=== PATIENT | female | born 1930 | race Caucasian/White ===

== ENCOUNTER 2017-08-30 19:02 | Inpatient (IN) | payer MEDICARE, BC ==
[~2017-08-30] VITALS: Ht 149.9 cm; Wt 67.1 kg
--- NOTE | ~2017-08-30 | EC ---
PATIENT:RAMIRO VIDAL DATE OF SERVICE: 08/31/17 SEX: F MEDICAL RECORD: [id number] DATE OF : 34 LOCATION:[facility] AGE OF PATIENT: 87 ADMISSION DATE: 08/31/17 REFERRING PHYSICIAN: INTERPRETING PHYSICIAN: CHRISS COLVIN MD ECHOCARDIOGRAM REPORT ECHO CHARGES 4 ECHO COMPLETE Date: 08/31 CLINICAL DIAGNOSIS: CHF/LV FUN ECHOCARDIOGRAPHIC MEASUREMENTS (adult normal given) AC root (d.<3.7cm) 3.2 cm LV Septum d (<1.2 cm> 1.3 cm Valve Excursion 1.9 cm LV Septum (systole) 1.7 cm Left Atria (s.<4.0cm> 3.2 cm LVPW d(<1.2cm) 1.5 cm RV (d.<2.3cm) 3.2 cm LVPW (sytole) 1.8 cm LV diastole(<5.6CM) 4.6 cm MV E-F(>70mm/sec) cm LV systole 3.0 cm LVOT Diameter 1.8 cm MV exc.(>10mm) cm Est.ejection fraction (50-75%) % DOPPLER: LVIT cm/sec A 111 cm/sec E 74.0 cm/sec LA cm/sec RVSP 16 mmHg LVOT 91 cm/sec AOP1/2T m/s Asc. Ao 127 cm/sec RVOT 100 cm/sec RA cm/sec PA 138 cm/sec AV Gradient Peak 6.42 mmHg AV Mean 2.94 mmHg AV Area 2.1 cm MV Gradient Peak 6.99 mmHg MV Mean 3.05 mmHg MV Area cm COMMENTS: Box Toe Cementer: 2 PRATIMA OTRIZ Home Care Assistant: 3 Dr. Saxena TAPE# PACS Pericardial Effusion N DATE OF SERVICE: Adequate 2D, color flow, spectral Doppler, and M-Mode. LVH is present. LV internal dimensions are normal. Wall motion is normal. EF is greater than or equal to 55%. Aortic valve sclerosis without stenosis by Doppler interrogation. Left atrium, normal at 3.2 cm. Mitral valve shows no prolapse. Trace MR. Right-sided chamber is grossly normal. Trace TR. TRANSINT:[id number] Voice Confirmation ID: [id number] DOCUMENT ID: [id number] ECHOCARDIOGRAM REPORT [id number] RAMIRO VIDAL CHRISS COLVIN MD at 1155 CC: [id number] DICTATION DATE: 09/01/1725 FIELD INSPECTOR: 09/01/17 1117 DIS IN 09/02/17 [id number] [place] [address]
--- NOTE | ~2017-08-30 | CN ---
PATIENT NAME:RAMIRO VIDAL MEDICAL RECORD: [id number] : 34 LOCATION:[facility] ADMIT DATE: 08/31/17 ACCOUNT: [id number] CONSULTING PHYSICIAN: CHRISS COLVIN MD REFERRING PHYSICIAN: NATACHA CRAVEN DO DATE OF CONSULTATION: 08/31/2017 Cardiology Consultation HISTORY OF PRESENT ILLNESS: An 87-year-old patient of Dr. Moura with a history of peripheral vascular disease and coronary artery disease, actually was seen in the office with TIA type symptomatology, somewhat of a poor historian. She was found to have a left carotid bruit and scheduled for outpatient carotid Doppler and was admitted with syncope and falls, but also noted to have possible left lower lobe pneumonia. We are asked to see her concerning her cardiovascular status. PAST MEDICAL HISTORY: Includes: 1. History of hypertension. 2. Hyperlipidemia. 3. Hypothyroidism, on replacement. 4. Diabetes mellitus. 5. Coronary artery disease, status post intervention. 6. Peripheral vascular disease. ALLERGIES: TETANUS. MEDICATIONS: Typically include Claritin 10 mg p.o. every day, pravastatin 40 every day, Lexapro 5 every day, Neurontin 100 b.i.d., aspirin 81 every day, Glucotrol 10 b.i.d., Synthroid 75 mcg every day, metformin 500 b.i.d. SOCIAL HISTORY: She is a nonsmoker, nondrinker. She has had difficulty as of late with her ADLs. REVIEW OF SYSTEMS: The patient reports easy bruising but reports no swollen glands. The patient reports no fever, no night sweats, no significant weight gain, no significant weight loss. No significant exercise tolerance. The patient reports no dry eyes, no irritation, no vision change. Patient reports no difficulty hearing and no ear pain. Patient reports no frequent nose bleeds or nose and sinus problems. Patient reports on arm pain on exertion. No shortness of breath while lying down. No history of heart murmur. Patient reports no cough, no wheezing or coughing up blood. Patient reports no abdominal pain, no vomiting. Normal appetite. No diarrhea and not vomiting blood. No nausea and no constipation. Patient reports no incontinence. No difficulty urinating. No hematuria. No increased frequency. Patient reports no muscle aches. No weakness, no arthralgias, no back pain. No swelling of the extremities. Patient reports no abnormal mole, no jaundice, no rashes. Reports no loss of consciousness. No weakness and no numbness. No seizures, dizziness, or headaches. The patient reports no depression, no sleep disturbance, feeling safe in a relationship and no alcohol abuse. Patient reports on fatigue. Reports no runny nose or sinus pressure. No itching, no hives, and no frequent sneezing. PHYSICAL EXAMINATION: GENERAL: Elderly female in no acute distress. CONSULT REPORT [id number] RAMIRO VIDAL VITAL SIGNS: Blood pressure 97/46, pulse 77 and regular. HEENT: Normocephalic, atraumatic. NECK: Bilateral carotid bruits, left greater than right. HEART: Regular, II/ systolic ejection murmur. LUNGS: Good air excursion. ABDOMEN: Soft, nontender. EXTREMITIES: Pulses are preserved at 1+. There is no edema. DIAGNOSTIC DATA: EKG shows normal sinus rhythm, normal ME interval, no acute changes. IMPRESSION: The patient does have abnormal carotid Doppler by preliminary report with totally occluded right external carotid, additionally murmur sounds slightly improved. She is to follow up with Dr. Moura. We will plan for echocardiographic study and CTA of bilateral carotids. TRANSINT:[id number] Voice Confirmation ID: [id number] DOCUMENT ID: [id number] CHRISS COLVIN MD at 1155 CC: [id number] DICTATION DATE: 08/31/17 1143 SCREW MACHINE ADJUSTER AUTOMATIC: 08/31/17 1454 DIS IN 09/02/17 [id number] [place] [address]
[~2017-08-30 19:02] MED LIST: BAYER CHEWABLE81 MG PO; CLARITIN 10 MG10 MG PO; GLIPIZIDE10 MG PO; GLUCOPHAGE500 MG PO; HYDROCODONE-APA1 TAB PO; K-DUR20 MEQ; K-DUR20 MEQ PO; LASIX40 MG PO; LEVOXYL75 MCG PO; LEXAPRO5 MG PO; LYRICA75 MG PO; OMEPRAZOLE40 MG PO; PLAVIX75 MG PO; PRAVACHOL40 MG PO; PREMARIN0.9 MG PO
[2017-08-30 19:36] LABS: APPEARANCE CLEAR (CLEAR); BILIRUBIN NEGATIVE (NEGATIVE); COLOR YELLOW (YELLOW); GLUCOSE 100 mg/dL (NEGATIVE); KETONE NEGATIVE (NEGATIVE); NITRITE NEGATIVE (NEGATIVE); PROTEIN NEGATIVE (NEGATIVE); SPECIFIC GRAVITY 1.005 (1.005-1.020); UROBILINOGEN NORMAL (NORMAL)
[2017-08-30 20:23] LABS: BASOPHILS 0.6 % (0-2); EOSINOPHILS 1.2 % (0-7); HEMATOCRIT 39.7 % (36.0-48.0); HEMOGLOBIN 12.5 g/dL (12-16); IMMATURE GRANULOCYTES 0.4 % (0-5); LYMPHOCYTES 18.5 % (15-50); MCH 30.3 pg (26.0-34.0); MCHC 31.5 g/dL (31.0-37.0); MCV 96.4 fL (80.0-100.0); MEAN PLATELET VOLUME 11.3 fL (7.4-10.4); MONOCYTES 7.5 % (2-11); NEUTROPHILS 71.8 % (40-80); PLATELET COUNT 236 10x3/uL (130-400); RBC 4.12 10x6/uL (4.00-5.40); RDW 13.1 % (11.5-14.5); WBC 13.8 10x3/uL (4.8-10.8)
[2017-08-30 20:33] LABS: INR 0.96 (0.85-1.17); PROTIME 12.4 SECONDS (11.6-15.0)
[2017-08-30 20:44] LABS: ALBUMIN 3.3 g/dL (3.4-5.0); ALKALINE PHOSPHATASE 76 U/L (46-116); ALT (SGPT) 19 U/L (10-68); CALC OSMOLALITY 289 mosm/kg (275-300); CALCIUM 9.1 mg/dL (8.5-10.1); CARBON DIOXIDE 31.9 mmol/L (21.0-32.0); CHLORIDE - SERUM 105 mmol/L (98-107); CREATININE - SERUM 0.9 mg/dL (0.6-1.3); GLUCOSE 190 mg/dL (74-106); POTASSIUM - SERUM 4.2 mmol/L (3.5-5.1); PROTEIN - SERUM 7.2 g/dL (6.4-8.2); SODIUM 143 mmol/L (136-145); UREA NITROGEN 13 mg/dL (7-18); eGFR NON AFRICAN AMERICAN 63 mL/min (90-120)
[2017-08-30 20:48] LABS: CREATINE KINASE 58 UL (21-215); MAGNESIUM - SERUM 1.8 mg/dL (1.8-2.4); PRO BNP 853 pg/mL (0-450); TROPONIN-I < 0.017 ng/mL (0.000-0.060)
[2017-08-31] MEDS ORDERED: GABAPENTIN100 MG PO (02:08)
[2017-08-31 03:03] VITALS: BP 130/84; BMI 31.3
[2017-08-31 04:00] VITALS: BP 99/57
[2017-08-31 08:37] VITALS: BP 117/59
[2017-08-31 11:39] VITALS: BP 97/46
[2017-08-31 15:40] VITALS: BP 132/87
[2017-08-31 20:41] VITALS: BP 111/81
[2017-09-01] VITALS (8 sets, daily range): BP systolic 90–127; BP diastolic 56–85; BMI 29.9
[2017-09-01 04:27] LABS: BASOPHILS 0.5 % (0-2); HEMATOCRIT 39.2 % (36.0-48.0); HEMOGLOBIN 12.4 g/dL (12-16); IMMATURE GRANULOCYTES 0.3 % (0-5); LYMPHOCYTES 20.6 % (15-50); MCH 29.8 pg (26.0-34.0); MCHC 31.6 g/dL (31.0-37.0); MCV 94.2 fL (80.0-100.0); MEAN PLATELET VOLUME 11.7 fL (7.4-10.4); MONOCYTES 10.2 % (2-11); NEUTROPHILS 67.4 % (40-80); PLATELET COUNT 227 10x3/uL (130-400); RBC 4.16 10x6/uL (4.00-5.40); RDW 13.1 % (11.5-14.5)
[2017-09-01 04:47] LABS: ALBUMIN 2.8 g/dL (3.4-5.0); BILIRUBIN - TOTAL 0.3 mg/dL (0.2-1.3); CALCIUM 8.8 mg/dL (8.5-10.1); CARBON DIOXIDE 28.8 mmol/L (21.0-32.0); CREATININE - SERUM 0.8 mg/dL (0.6-1.3); PROTEIN - SERUM 6.9 g/dL (6.4-8.2)
[2017-09-01 04:51] LABS: ANION GAP 12.6 mmol/L (8-16); POTASSIUM - SERUM 3.4 mmol/L (3.5-5.1)
[2017-09-02 00:44] VITALS: BP 127/60
[2017-09-02 04:00] VITALS: BP 136/73
[2017-09-02 04:09] LABS: BASOPHILS 0.8 % (0-2); EOSINOPHILS 2.6 % (0-7); HEMATOCRIT 39.1 % (36.0-48.0); HEMOGLOBIN 12.4 g/dL (12-16); IMMATURE GRANULOCYTES 0.2 % (0-5); LYMPHOCYTES 21.9 % (15-50); MCH 29.7 pg (26.0-34.0); MCHC 31.7 g/dL (31.0-37.0); MCV 93.8 fL (80.0-100.0); MEAN PLATELET VOLUME 11.1 fL (7.4-10.4); NEUTROPHILS 63.5 % (40-80); PLATELET COUNT 231 10x3/uL (130-400); RBC 4.17 10x6/uL (4.00-5.40); RDW 13.2 % (11.5-14.5); WBC 9.5 10x3/uL (4.8-10.8)
[2017-09-02 04:26] LABS: ALBUMIN 2.8 g/dL (3.4-5.0); ANION GAP 10.5 mmol/L (8-16); BILIRUBIN - TOTAL 0.36 mg/dL (0.2-1.3); CALCIUM 8.8 mg/dL (8.5-10.1); CARBON DIOXIDE 29.7 mmol/L (21.0-32.0); POTASSIUM - SERUM 3.2 mmol/L (3.5-5.1)
[2017-09-02 08:39] VITALS: BP 121/60
[2017-09-02 13:12] VITALS: BP 134/75
[2017-09-02 14:13] VITALS: Ht 149.9 cm; Wt 67.1 kg
[2017-09-02] MEDS ORDERED: XOPENEX 0.0.63 MG/3 UPD (14:47)
[2017-09-02] MEDS ORDERED: OMNICEF300 MG PO (14:48)
[2017-09-02] MEDS ORDERED: ZITHROMAX250 MG PO (14:48)
== END 2017-09-02 17:36 | DRG 179 ==
LOC: D.ER 19:02 → D.MS 08-31 00:51 → D.SDCHOLD 09-01 13:12 → D.MS 09-02 17:36
PROVIDERS: Emergency Medicine; Family Medicine; Nurse Practitioner Family
PROC: 0T9B70Z Drainage of Bladder with Drainage Device, Via Natural or Artificial Opening (ICD-10-PCS; principal; 2017-08-31)
DX: J69.0 Pneumonitis due to inhalation of food and vomit (principal); J18.9 Pneumonia, unspecified organism; I11.0 Hypertensive heart disease with heart failure; I50.9 Heart failure, unspecified; B37.2 Candidiasis of skin and nail; K21.9 Gastro-esophageal reflux disease without esophagitis; F32.9 Major depressive disorder, single episode, unspecified; E03.9 Hypothyroidism, unspecified; I25.10 Atherosclerotic heart disease of native coronary artery without angina pectoris; Z85.038 Personal history of other malignant neoplasm of large intestine; I69.320 Aphasia following cerebral infarction; E11.9 Type 2 diabetes mellitus without complications; I65.23 Occlusion and stenosis of bilateral carotid arteries; I70.8 Atherosclerosis of other arteries; R55 Syncope and collapse; R42 Dizziness and giddiness

== ENCOUNTER 2017-09-02 16:21 | Inpatient (IN) | payer MEDICARE, BC ==
[~2017-09-02] VITALS: Ht 149.9 cm; Wt 70.3 kg
--- NOTE | ~2017-09-02 | RHP ---
PATIENT: RAMIRO VIDAL MEDICAL RECORD: [id number] ACCOUNT: [id number] LOCATION:[facility]17 : 34 ADMISSION DATE: 09/02/17 REHABILITATION HISTORY AND PHYSICAL EXAMINATION POST ADMISSION PHYSICIAN EXAMINATION POST-ADMISSION PHYSICAL EXAMINATION AND HISTORY AND PHYSICAL DATE OF ADMISSION: 09/02/2017 ADMITTING DIAGNOSIS: Pneumonia. HISTORY OF PRESENT ILLNESS: The patient admitted to inpatient rehab for debility secondary to pneumonia. She is an 87-year-old female patient admitted to the Emergency Room with pneumonia. She was brought to the Emergency Room by her son after issues of dizziness and falling. She has been falling more over the past month. She has got a history of CVA, coronary artery disease, colorectal carcinoma, reflux disease, depression, hypothyroidism, diabetes, and peripheral vascular disease. She was recently seen in the cardiology consult office with TIA-type symptomatology. She was found to have a left carotid bruit and scheduled for an outpatient carotid Doppler. She has had some expressive aphasia noted upon interview. She has had multiple falls since May. She has been on home O2, but she rarely uses it. She lives at home alone, was independent with ADLs, moderately independent with mobility, use of a rolling walker. States her [id number] comes over and bathes her and checks on her. She is currently set up for mod assist to her ADLs and mod assist to total assist with mobility. She and her family plan for her return home hopefully at her prior level of functioning or possibly better if possible. Comorbidities in this patient include left lower lobe community-acquired pneumonia, leukocytosis, debility, history of CVA, diabetes, history of colorectal carcinoma, gastroesophageal reflux disease, depression, hypothyroidism, dizziness, and candidiasis of the skin. PAST MEDICAL HISTORY: Significant for hypertension, hyperlipidemia, hypothyroidism, diabetes, coronary artery disease, peripheral vascular disease, CVA, weakness, home O2 use, colon cancer, and acid reflux. PAST SURGICAL HISTORY: Includes , hysterectomy, colon resection. She has had a PTCA with stents in the past. ALLERGIES: TETANUS. CURRENT MEDICATIONS: Include Xopenex 0.63 t.i.d. p.r.n., Protonix 40 mg daily, metformin 500 mg b.i.d. with meals, Laurel 60 mg b.i.d., Synthroid 75 mcg daily, glipizide 10 mg b.i.d., Premarin 0.9 mg daily, Lexapro 5 mg daily, Zithromax 250 mg daily. She is on aspirin chewable 81 mg daily. She is on Pravachol 40 mg at bedtime, Neurontin 100 mg b.i.d., Omnicef 300 mg every 12 hours, and polyethylene glycol 17 grams in 8 ounces of water daily. HABITS: No alcohol or tobacco use. FAMILY HISTORY: Noncontributory. SOCIAL HISTORY: The patient hopes to return back home. Once again, she has got a strong family support with her son and his . HISTORY AND PHYSICAL [id number] RAMIRO VIDAL REVIEW OF SYSTEMS: GENERAL: Does complain of weakness. HEENT: Does complain of cold, cough, and congestion. CARDIOVASCULAR: Denies chest pain. PHYSICAL EXAMINATION: VITAL SIGNS: Stable, afebrile. GENERAL: An elderly female, in no acute distress upon exam. HEENT: Normocephalic and atraumatic. Mucosa moist. NECK: Supple without lymphadenopathy. LUNGS: Clear at this time. HEART: Regular rate and rhythm. ABDOMEN: Benign. EXTREMITIES: No clubbing, cyanosis, or edema. NEUROLOGIC: She is noted to have proximal muscle weakness. LABORATORY DATA: Her white count is 8.5, H&H of 12 and 39, and platelet count is 210. Sodium 144, potassium 3.3, BUN and creatinine of 20 and 0.7, blood sugar is noted to be 109. ASSESSMENT: This is an 87-year-old female patient, who was brought in basically secondary to debility secondary to probable community-acquired pneumonia. The patient has potential to make improvement. We will institute the following multidisciplinary therapies including, but not limited to physical, occupational, respiratory, speech, nutritional services, prosthetics and orthotics. Given her complex medical condition and risk for more complications, rehabilitation services cannot be provided at a low level of care such as a [facility] facility. PLAN: 1. Admit to [facility] for intensive inpatient therapy to include the following disciplines: A. Physical therapy to improve gait, all transfer skills and bed mobility to a modified independent level. B. Occupational therapy to improve activities of daily living to a modified independent level. C. Case management to assist with discharge planning and placement options. D. Nutrition to assist with nutritional needs. E. Rehabilitation nursing to assist in monitoring the patient's underlying medical conditions and to assist with any type of bowel or bladder management. 2. The patient's current medications will be continued. 3. Placed on standard fall precautions. 4. The patient's estimated length of stay is approximately 7-10 days. 5. Discuss this patient during care team staff meeting this week. TRANSINT:[id number] Voice Confirmation ID: [id number] DOCUMENT ID: [id number] NOEL notes whether there has been none or any medical/functional change since admission: - No change since preadmission screen. NOEL attests patient continues to be appropriate for IRF: HISTORY AND PHYSICAL [id number] RAMIRO VIDAL - Continues to be appropriate. FUENTES HUGHES MD at 1511 CC: [id number] DICTATION DATE: 09/03/17 0852 RETAIL CUSTOMER SERVICE SPECIALIST: 09/03/17 1011 ADM IN [id number] [place] [address]
[~2017-09-02 16:21] MED LIST changes: +GABAPENTIN100 MG PO; +OMNICEF300 MG PO; +XOPENEX 0.0.63 MG/3 UPD; +ZITHROMAX250 MG PO
[2017-09-02 20:00] VITALS: BP 128/74
[2017-09-02 22:45] VITALS: BP 128/74; BMI 31.3
[2017-09-03 06:25] LABS: BASOPHILS 0.8 % (0-2); EOSINOPHILS 3.9 % (0-7); HEMATOCRIT 38.8 % (36.0-48.0); HEMOGLOBIN 12.3 g/dL (12-16); IMMATURE GRANULOCYTES 0.2 % (0-5); MCH 29.9 pg (26.0-34.0); MCHC 31.7 g/dL (31.0-37.0); MCV 94.2 fL (80.0-100.0); MEAN PLATELET VOLUME 11.6 fL (7.4-10.4); MONOCYTES 10.5 % (2-11); NEUTROPHILS 65.6 % (40-80); PLATELET COUNT 210 10x3/uL (130-400); RBC 4.12 10x6/uL (4.00-5.40); RDW 13.2 % (11.5-14.5); WBC 8.5 10x3/uL (4.8-10.8)
[2017-09-03 06:39] LABS: CALC OSMOLALITY 290 mosm/kg (275-300); CALCIUM 8.8 mg/dL (8.5-10.1); CARBON DIOXIDE 28.4 mmol/L (21.0-32.0); CHLORIDE - SERUM 106 mmol/L (98-107); CREATININE - SERUM 0.7 mg/dL (0.6-1.3); GLUCOSE 109 mg/dL (74-106); POTASSIUM - SERUM 3.3 mmol/L (3.5-5.1); SODIUM 144 mmol/L (136-145); UREA NITROGEN 20 mg/dL (7-18); eGFR NON AFRICAN AMERICAN 84 mL/min (90-120)
[2017-09-03 11:13] VITALS: BP 108/63
[2017-09-03 13:40] VITALS: Ht 149.9 cm; Wt 70.3 kg
[2017-09-03 20:10] VITALS: BP 123/64
[2017-09-04 07:45] VITALS: BP 102/68
[2017-09-04 19:45] VITALS: BP 83/54
[2017-09-05 07:00] LABS: ANION GAP 11.1 mmol/L (8-16); CALCIUM 8.9 mg/dL (8.5-10.1); CARBON DIOXIDE 29.6 mmol/L (21.0-32.0); CREATININE - SERUM 0.9 mg/dL (0.6-1.3); POTASSIUM - SERUM 3.7 mmol/L (3.5-5.1)
[2017-09-05 08:00] VITALS: BP 96/44
[2017-09-05 08:02] LABS: HEMATOCRIT 39.6 % (36.0-48.0); HEMOGLOBIN 12.3 g/dL (12-16); IMMATURE GRANULOCYTES 0.3 % (0-5); LYMPHOCYTES 21.4 % (15-50); MCHC 31.1 g/dL (31.0-37.0); MCV 96.6 fL (80.0-100.0); MONOCYTES 7.3 % (2-11); PLATELET COUNT 244 10x3/uL (130-400); RDW 13.2 % (11.5-14.5); WBC 10.4 10x3/uL (4.8-10.8)
[2017-09-05 20:00] VITALS: BP 107/51
[2017-09-06 08:00] VITALS: BP 110/59
[2017-09-06 23:21] VITALS: BP 99/54
[2017-09-07 08:00] VITALS: BP 111/63
[2017-09-07 23:47] VITALS: BP 97/61
[2017-09-08 06:37] LABS: BASOPHILS 0.8 % (0-2); EOSINOPHILS 3.5 % (0-7); HEMOGLOBIN 11.1 g/dL (12-16); IMMATURE GRANULOCYTES 0.3 % (0-5); LYMPHOCYTES 17.5 % (15-50); MCV 96.6 fL (80.0-100.0); MEAN PLATELET VOLUME 11.9 fL (7.4-10.4); MONOCYTES 7.8 % (2-11); NEUTROPHILS 70.1 % (40-80); PLATELET COUNT 257 10x3/uL (130-400); RBC 3.83 10x6/uL (4.00-5.40); RDW 13.3 % (11.5-14.5); WBC 11.9 10x3/uL (4.8-10.8)
[2017-09-08 06:50] LABS: ANION GAP 12.2 mmol/L (8-16); CALCIUM 8.7 mg/dL (8.5-10.1); CARBON DIOXIDE 29.9 mmol/L (21.0-32.0); CREATININE - SERUM 0.8 mg/dL (0.6-1.3); POTASSIUM - SERUM 4.1 mmol/L (3.5-5.1)
[2017-09-08 13:56] VITALS: BP 126/69
[2017-09-08 19:23] VITALS: BP 95/61
[2017-09-09 08:16] VITALS: BP 119/69
[2017-09-09 19:24] VITALS: BP 105/62
[2017-09-10 07:34] LABS: ANION GAP 10.9 mmol/L (8-16); CALCIUM 9.1 mg/dL (8.5-10.1); CREATININE - SERUM 0.8 mg/dL (0.6-1.3); POTASSIUM - SERUM 3.9 mmol/L (3.5-5.1)
[2017-09-10 07:46] LABS: EOSINOPHILS 3.9 % (0-7); HEMATOCRIT 38.3 % (36.0-48.0); HEMOGLOBIN 11.9 g/dL (12-16); IMMATURE GRANULOCYTES 0.2 % (0-5); LYMPHOCYTES 24.5 % (15-50); MCH 29.9 pg (26.0-34.0); MCHC 31.1 g/dL (31.0-37.0); MCV 96.2 fL (80.0-100.0); MEAN PLATELET VOLUME 12.5 fL (7.4-10.4); MONOCYTES 7.4 % (2-11); PLATELET COUNT 239 10x3/uL (130-400); RBC 3.98 10x6/uL (4.00-5.40); RDW 13.1 % (11.5-14.5); WBC 8.7 10x3/uL (4.8-10.8)
[2017-09-10 08:01] VITALS: BP 121/70
[2017-09-10 19:46] VITALS: BP 106/65
[2017-09-11 08:23] VITALS: BP 98/69
[2017-09-11 19:17] VITALS: BP 111/65
[2017-09-12 08:30] VITALS: BP 106/67
== END 2017-09-12 15:00 | disposition home health service (06) | DRG 195 ==
LOC: D.REHAB 16:21
PROVIDERS: Emergency Medicine
DX: J18.9 Pneumonia, unspecified organism (principal); R53.81 Other malaise; D72.829 Elevated white blood cell count, unspecified; K21.9 Gastro-esophageal reflux disease without esophagitis; E03.9 Hypothyroidism, unspecified; F32.9 Major depressive disorder, single episode, unspecified; I69.320 Aphasia following cerebral infarction; I50.9 Heart failure, unspecified; Z85.038 Personal history of other malignant neoplasm of large intestine; B37.2 Candidiasis of skin and nail; R42 Dizziness and giddiness; E11.65 Type 2 diabetes mellitus with hyperglycemia